=== PATIENT | female | born 2000 | race Caucasian/White ===

== ENCOUNTER → 2022-01-24 | Outpatient (CLI) | payer SELFPAY ==
[2022-01-24 12:03] LABS: Basophils # (A) 0.06 X 10*3/uL (0.00-0.10); Basophils % (A) 0.9 %; Eosinophils # (A) 0.31 X 10*3/uL (0.04-0.35); Eosinophils % (A) 4.8 %; HCT 39.9 % (37.2-46.3); HGB 12.8 g/dL (12.0-15.0); Immature Grans, Automated 0.3 %; Lymphocytes # (A) 2.41 X 10*3/uL (0.90-5.00); Lymphocytes % (A) 37.5 %; MCHC 32.1 g/dL (32.0-37.0); MCV 87.3 fL (80.0-97.0); Mean Platelet Volume 10.3 fL (9.5-12.2); Monocytes # (A) 0.44 X 10*3/uL (0.20-1.00); Monocytes % (A) 6.8 %; NRBC Per 100 WBC 0 /100 WBCS (0.0-0.0); Neutrophils # (A) 3.19 X 10*3/uL (1.80-7.70); Neutrophils % (A) 49.7 %; Platelet Count 409 X 10*3/uL (140-440); RBC 4.57 X 10*6/uL (4.10-5.20); RDW 13.6 % (11.5-14.5); WBC 6.43 X 10*3/uL (4.50-10.00)
[2022-01-24 12:42] LABS: African American GFR (CKD) 120.4 (60.0-200.0); BUN/Creat Ratio 13.63 Ratio (12.00-20.00); Blood Urea Nitrogen 10.9 mg/dL (9.0-27.0); Calcium 9.6 mg/dL (8.7-10.3); Carbon Dioxide 23.6 mmol/L (20.0-27.5); Chloride 104 mmol/L (96-109); Glucose 96 mg/dL (70-110); Non-African American GFR(CKD) 103.9 (60.0-200.0); Potassium 3.9 mmol/L (3.5-5.5); Sodium 138 mmol/L (135-145)
== END | disposition home or self-care (01) ==
LOC: LABWHC1 08:08
PROVIDERS: ATTEND Internal Medicine
DX: E23.0 Hypopituitarism (principal)
CPT/HCPCS: 36415; 80048; 82533; 84443; 85025

== ENCOUNTER 2022-05-23 20:23 | Emergency (ER) | payer OTHER ==
[2022-05-23 21:20] VITALS: BP 96/63; PULSE 71; RESP 18; TEMP 98.4
--- NOTE | 2022-05-23 21:43 | XR ---
EXAMINATION TYPE: XR Hip Complete RT DATE OF EXAM: 05/23/2022 COMPARISON: NONE HISTORY: Hip pain TECHNIQUE: 2 views FINDINGS: I see no fracture nor dislocation. Hip joint space is normal. Sacroiliac joint is intact. IMPRESSION: Negative right hip exam. No fracture.
--- NOTE | 2022-05-23 21:44 | XR ---
EXAMINATION TYPE: XR knee complete RT DATE OF EXAM: 05/23/2022 COMPARISON: NONE HISTORY: Knee pain TECHNIQUE: 5 views FINDINGS: There is no sign of fracture nor dislocation. Knee joint spaces are normal. No sign of joint effusion. IMPRESSION: Normal right knee.
--- NOTE | 2022-05-24 01:06 | ED ---
Extremity Problem HPI - General Chief complaint: Extremity Problem,Nontraumatic Stated complaint: Right Knee Injury Time Seen by Provider: 05/24/22 00:49 Source: patient, RN notes reviewed Mode of arrival: ambulatory Limitations: no limitations - History of Present Illness Initial comments: Patient was in our department with right knee pain. Patient states she had a popping sensation about a week ago, she states this happened about 3 times and she has a feeling of instability when she is walking. Patient states pain is sharp, increased with ambulation and movement of the knee. It radiates from the knee proximally. No hip or ankle abdomen body. There was no direct trauma. No headache, no fever or chills, no changes in vision or hearing, no sore throat or difficulty with speech, no neck pain, no chest pain or shortness of breath, no abdominal pain, no nausea or vomiting, no changes in urination or bowel movements, no numbness or tingling, , no skin rashes or lesions. MD Complaint: extremity pain - Related Data Previous Rx's Medication Instructions Recorded Etodolac [Lodine] 400 mg PO BID PRN #20 tablet 05/24/22 Allergies Allergy/AdvReac Type Severity Reaction Status Date / Time clindamycin Allergy Rash/Hives Verified 05/23/22 21:20 Review of Systems ROS Statement: Those systems with pertinent positive or pertinent negative responses have been documented in the HPI. ROS Other: All systems not noted in ROS Statement are negative. Past Medical History Past Medical History: No Reported History History of Any Multi-Drug Resistant Organisms: None Reported Past Surgical History: No Surgical Hx Reported Past Psychological History: Anxiety, Depression Smoking Status: Never smoker Past Alcohol Use History: None Reported Past Drug Use History: None Reported General Exam Limitations: no limitations General appearance: alert, in no apparent distress Head exam: Present: atraumatic, normocephalic, normal inspection Eye exam: Present: normal appearance, PERRL, EOMI. Absent: scleral icterus, conjunctival injection, periorbital swelling ENT exam: Present: normal exam, mucous membranes moist Neck exam: Present: normal inspection, full ROM. Absent: tenderness, meningismus, lymphadenopathy Respiratory exam: Present: normal lung sounds bilaterally. Absent: respiratory distress, wheezes, rales, rhonchi, stridor Cardiovascular Exam: Present: regular rate, normal rhythm, normal heart sounds. Absent: systolic murmur, diastolic murmur, rubs, gallop, clicks GI/Abdominal exam: Present: soft, normal bowel sounds. Absent: distended, tenderness, guarding, rebound, rigid Extremities exam: Present: normal inspection, full ROM (With pain), tenderness (Patient tender to the anterior aspect of the right knee. No erythema, no break in skin integrity. Ligaments stable as tested.), normal capillary refill. Absent: pedal edema, joint swelling, calf tenderness Back exam: Present: normal inspection Neurological exam: Present: alert, oriented X3, CN II-XII intact Psychiatric exam: Present: normal affect, normal mood Skin exam: Present: warm, dry, intact, normal color. Absent: rash Course Vital Signs 05/23/22 21:17 Temperature 98.4 F Pulse Rate 71 Respiratory 18 Rate Blood Pressure 96/63 O2 Sat by Pulse 100 Oximetry Procedures - Orthopedic Splinting/Casting Injury #1 Side: right Lower Extremity Immobilizer: knee immobilizer (Distal neurovascular status intact pre-and post-application) Medical Decision Making - Medical Decision Making Patient will need orthopedic follow-up. Knee immobilizer applied. Work restrictions written. Patient was told to return to the ER for any signs or symptoms worsen. Told to return immediately if any other problems arise. All questions answered. Treatment plan discussed. Patient in agreement Every effort has been made to ensure accuracy of this dictation. However, due to the limitations of electronic medical records and dictation devices, errors in charting still occur. Resident Dr. Piña Disposition Clinical Impression: Patellar tendinitis, right knee Disposition: HOME SELF-CARE Condition: Good Instructions (If sedation given, give patient instructions): Knee Pain (ED), Knee Immobilizer (ED) Additional Instructions: Call tomorrow morning to make a follow-up appointment with orthopedics as discussed.. Return to the ER immediately if any symptoms worsen, new symptoms arise, or any other problems develop. Is patient prescribed a controlled substance at d/c from ED?: No Referrals: Gianni Arzate MD [STAFF PHYSICIAN] - 1-2 days Time of Disposition: 01:05
== END 2022-05-24 01:26 | disposition home or self-care (01) ==
LOC: EC 20:23
DX: M76.51 Patellar tendinitis, right knee (principal)
CPT/HCPCS: 73502; 99283

== ENCOUNTER 2022-09-20 11:23 | Emergency (ER) | payer OTHER ==
[2022-09-20 11:36] VITALS: RESP 18; TEMP 97.5
[2022-09-20] MEDS ORDERED: ACETAMINOPHEN TAB 500 MG TAB PO STA (11:52)
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
[2022-09-20 13:23] VITALS: BP 105/71; PULSE 80
== END 2022-09-20 13:23 | disposition home or self-care (01) ==
LOC: EC 11:23
DX: M79.18 Myalgia, other site (principal); Z88.1 Allergy status to other antibiotic agents; V89.2XXA Person injured in unspecified motor-vehicle accident, traffic, initial encounter
CPT/HCPCS: 99284

== ENCOUNTER 2022-11-26 14:30 | Emergency (ER) | payer OTHER ==
[2022-11-26 14:35] VITALS: TEMP 97.6
[2022-11-26] MEDS ORDERED: METOCLOPRAMIDE 5 MG/ML 2 ML VIAL IVP STA (14:43)
[2022-11-26] MEDS ORDERED: MAG HYDROX/AL HYDROX/SIMETH 30 ML, HYOSCYAMINE ELIXIR 10 ML, LIDOCAINE VISCOUS 2% 10 ML PO STA ×3 (14:46)
[2022-11-26] MEDS ORDERED: ACETAMINOPHEN TAB 500 MG TAB PO STA (14:46)
--- NOTE | 2022-11-26 14:58 | ED ---
General Adult HPI - General Chief complaint: Chest Pain Stated complaint: 28wks preg, chest pressure Time Seen by Provider: 11/26/22 14:37 Source: patient, RN notes reviewed, old records reviewed Mode of arrival: ambulatory Limitations: no limitations - History of Present Illness Initial comments: Patient is a 22-year-old female who presents emergency Department complaining of a 4-5 day history of worsening chest discomfort. Describes as a pressure s ensation is also had some nausea and vomiting. Pain is worse with movement. Eyes gary shortness of breath. Denies fevers, chills, cough. Unknown family medical history of cardiac disease as she was adopted. No known cardiac medical problems for the patient. Denies any leg swelling. Denies any orthopnea. Denies any PND. Presents that she is uncertain was causing the pain. States is more or less constant. Denies any worsening pain with laying down. She is resting comfortably at this time. Patient is G5 P 2021. No competitions with this current . Denies any vaginal bleeding or spotting. Denies any abdominal pain. Does endorse mild nausea. Presents for further evaluation at this time. Follows up with Dr. Fairchild. She is currently 28 weeks .States the pain is located in the upper area, near where her sternum meets her collarbones. No radiation. No pleurisy. - Related Data Previous Rx's Medication Instructions Recorded Etodolac [Lodine] 400 mg PO BID PRN #20 tablet 05/24/22 Allergies Allergy/AdvReac Type Severity Reaction Status Date / Time clindamycin Allergy Rash/Hives Verified 05/23/22 21:20 Review of Systems ROS Statement: Those systems with pertinent positive or pertinent negative responses have been documented in the HPI. Review of Systems: CONST: Denies fever EYES: Denies blurry vision ENT: Denies nasal congestion C/V: Endorses chest pain RESP: Denies shortness of breath GI: Denies abdominal pain : Denies dysuria SKIN: Denies rash. MSK: Denies joint pain. NEURO: Denies headache ROS Other: All systems not noted in ROS Statement are negative. Past Medical History Past Medical History: No Reported History History of Any Multi-Drug Resistant Organisms: None Reported Past Surgical History: No Surgical Hx Reported Additional Past Surgical History / Comment(s): D & C after miscarriage in October 2021. Past Psychological History: Anxiety, Depression Smoking Status: Never smoker Past Alcohol Use History: None Reported Past Drug Use History: None Reported General Exam - General Exam Comments Initial Comments: General: Appears in no acute distress. HEAD: Normal with no signs of head trauma. EYES: PERRLA, EOMI, conjunctiva normal, no discharge. ENT: Hearing grossly intact, normal oropharynx. RESPIRATORY: Clear breath sounds bilaterally. No wheezes, rales, or rhonchi. No hypoxia. No respiratory distress. C/V: Regular rate and rhythm. S1 and S2 auscultated, no edema, peripheral pulses 2+ and intact throughout. Chest pain is somewhat reproducible on pal pation. ABD: Gravid uterus. Abdomen is soft, nontender. No guarding. No peritoneal signs. EXT: Normal range of motion, no obvious deformity SKIN: No rashes or lesions observed on exposed skin. NEURO: Alert and oriented 4. Limitations: no limitations Course Vital Signs 11/26/22 11/26/22 11/26/22 14:31 16:22 18:59 Temperature 97.6 F Pulse Rate 94 100 98 Respiratory 18 12 18 Rate Blood Pressure 99/63 100/60 100/60 O2 Sat by Pulse 98 98 99 Oximetry Medical Decision Making - Medical Decision Making Was pt. sent in by a medical professional or institution? @ -Yes, patient's DRAFTING ENGINEER sent her in for evaluation to be evaluated for preeclampsia. Did you speak to anyone other than the patient for history? @ -No Did you review nursing and triage notes? @ -Yes. I agreed. Were old charts reviewed? @ -Prior admissions Differential Diagnosis? @ -Differential Chest Pain: Stable Angina, Unstable Angina, STEMI, NSTEMI Aortic Dissection, Pneumothorax, Musculoskeletal, Esophageal Spasm GERD, Cholecystitis, Pancreatitis, Zoster, this is not meant to be an all-inclusive list. Differential Dyspnea: Coronary syndrome, arrhythmia, tamponade, asthma, COPD, pulmonary embolism, pneumonia, pneumothorax, pulmonary effusion, anaphylaxis, diabetic ketoacidosis, flailed chest, pulmonary contusion, diaphragmatic rupture, anemia, neuromus cular, this is not meant to be an all-inclusive list. EKG interpreted by me (3pts min.)? @ -Yes. See note. X-rays interpreted by me (1pt min.)? @ -Yes. Chest x-ray revealed no acute cardio pulmonary process. CT interpreted by me (1pt min.)? @ -none U/S interpreted by me (1pt. min.)? @ -Yes. Bilateral lower extremity venous duplex ultrasounds were negative for DVT. What testing was considered but not performed? (CT, X-rays, U/S, labs)? Why? @None What meds were considered but not given? Why? @ -none Did you discuss the management of the patient with other professionals? @ -None Did you reconcile home meds? @ -none Was smoking cessation discussed for >3mins.? @ -none Was critical care preformed (if so, how long)? @ -none Were there social determinants of health that impacted care today? How? (Homelessness, low income, unemployed, alcoholism, drug addiction, transportation, low edu. Level, literacy, decrease access to med. care, [facility], rehab)? @ -No Was there de-escalation of care discussed even if they declined? (Discuss DNR or withdrawal of care, Hospice)? @ -No What co-morbidities impacted this encounter? (DM, HTN, Smoking, COPD, CAD, Cancer, CVA, Hep., AIDS, mental health diagnosis, sleep apnea, morbid obesity)? @ -Currently in third trimester . Was patient admitted / discharged? @ - Based on the patient's presentation and physical exam, I'm concerned for cardiopulmonary etiology for her current chest pain. I have lower suspicion, however we will obtain cardiac labs. We will also obtain EKG, one view chest x- ray after discussion with the patient to avoid any excess radiation she is currently 28 weeks . She was in agreement with this plan. She'll receive analgesia medications. These include a GI cocktail, Tylenol, antibiotics as well as a liter of D5 normal saline. Patient was in agreement this plan. Vital signs are within acceptable limits. She is in no respiratory distress. We will obtain heart tones by DRAFTING ENGINEER. heart tones were obtained and were within acceptable limits in the 150s. Patient's laboratory studies are remarkable for a microcytic anemia with a hemoglobin of 10. Troponin is undetectable. BNP is within normal limits. Urinalysis is a contaminated catch. Chest x-ray as interpreted by myself reveals no evidence of acute cardiac process. EKG shows no signs of acute ische jody. At this time, patient had just had fluids hung. Was still having some symptoms. She'll be given Benadryl in addition to the Reglan for her headache as well as a GI cocktail. I did recommend obtaining a screening d-dimer at this time as well as she is still having the chest heaviness symptoms or shortness of breath. She was in agreement this plan. Patient's d-dimer was elevated to 0.91, however within acceptable limits to rule out PE in the patient in third trimester of based on the YEARS algorhythm. She has no YEARS criteria and ddimer is <1. However we will obtain screening bilateral lower extremity venous duplexes. These returned negative for DVT. Patient has normal blood pressure and vital signs as well as laboratory studies do not support a diagnosis of preeclampsia. Have no concern for preeclampsia at this time. I updated the patient. At this time, patient's symptoms have completely resolved. She is feeling improved. I believe it is safer to be discharged home at this time. She was in agreement with this plan. Strict return precautions were discussed. Heart scores low at 1. She was in agreement with this plan. Patient has follow-up with DRAFTING ENGINEER this week. I instructed the patient to follow up with their PCP in the next 1-3 days. I explained that the patient should return to the emergency department if they experience any worsening symptoms. Strict return precautions were discussed with the patient. The patient expressed understanding of these instructions. I answered all questions that the patient had. The patient was discharged home in good condition with their prescriptions and follow up information. Undiagnosed new problem with uncertain prognosis? @ -Atypical chest pain Drug Therapy requiring intensive monitoring for toxicity (Heparin, Nitro, Insulin, Cardizem)? @ -none Were any procedures done? @ -none Diagnosis/symptom? @ -Atypical chest pain, headache Acute, or Chronic, or Acute on Chronic? @ -acute Uncomplicated (without systemic symptoms) or Complicated (systemic symptoms)? @ -Uncomplicated Side effects of treatment? @ -none Exacerbation, Progression, or Severe Exacerbation] @ -no Poses a threat to life or bodily function? @ -no - Lab Data Result diagrams: 11/26/22 14:55 11/26/22 14:55 Lab Results 11/26/22 11/26/22 11/26/22 Range/Units 14:55 14:55 14:55 WBC 8.4 (3.8-10.6) k/uL RBC 3.91 (3.80-5.40) m/uL Hgb 10.0 L (11.4-16.0) gm/dL Hct 30.0 L (34.0-46.0) % MCV 76.7 L (80.0-100.0) fL MCH 25.5 (25.0-35.0) pg MCHC 33.3 (31.0-37.0) g/dL RDW 14.3 (11.5-15.5) % Plt Count 264 (150-450) k/uL MPV 9.3 Neutrophils % 74 % Lymphocytes % 16 % Monocytes % 5 % Eosinophils % 2 % Basophils % 0 % Neutrophils # 6.2 (1.3-7.7) k/uL Lymphocytes # 1.4 (1.0-4.8) k/uL Monocytes # 0.4 (0-1.0) k/uL Eosinophils # 0.2 (0-0.7) k/uL Basophils # 0.0 (0-0.2) k/uL Hypochromasia Slight Poikilocytosis Slight PT (9.0-12.0) sec INR (<1.2) APTT (22.0-30.0) sec D-Dimer (<0.60) mg/L FEU Sodium 135 L (137-145) mmol/L Potassium 4.0 (3.5-5.1) mmol/L Chloride 109 H (98-107) mmol/L Carbon Dioxide 22 (22-30) mmol/L Anion Gap 4 mmol/L BUN 5 L (7-17) mg/dL Creatinine 0.51 L (0.52-1.04) mg/dL Est GFR (CKD-EPI)AfAm >90 (>60 ml/min/1.73 sqM) Est GFR (CKD-EPI)NonAf >90 (>60 ml/min/1.73 sqM) Glucose 91 (74-99) mg/dL Calcium 8.4 (8.4-10.2) mg/dL Magnesium 2.0 (1.6-2.3) mg/dL Total Bilirubin 0.7 (0.2-1.3) mg/dL AST 18 (14-36) U/L ALT 12 (4-34) U/L Alkaline Phosphatase 89 (38-126) U/L Troponin I <0.012 (0.000-0.034) ng/mL NT-Pro-B Natriuret Pep pg/mL Total Protein 6.1 L (6.3-8.2) g/dL Albumin 3.2 L (3.5-5.0) g/dL Amylase 51 (30-110) U/L Lipase 26 (23-300) U/L Urine Color Urine Appearance (Clear) Urine pH (5.0-8.0) Ur Specific [place] (1.001-1.035) Urine Protein (Negative) Urine Glucose (UA) (Negative) Urine Ketones (Negative) Urine Blood (Negative) Urine Nitrite (Negative) Urine Bilirubin (Negative) Urine Urobilinogen (<2.0) mg/dL Ur Leukocyte Esterase (Negative) Urine RBC (0-5) /hpf Urine WBC (0-5) /hpf Ur Squamous Epith Cells (0-4) /hpf Urine Bacteria (None) /hpf Urine Mucus (None) /hpf 11/26/22 11/26/22 11/26/22 Range/Units 14:55 15:05 15:05 WBC (3.8-10.6) k/uL RBC (3.80-5.40) m/uL Hgb (11.4-16.0) gm/dL Hct (34.0-46.0) % MCV (80.0-100.0) fL MCH (25.0-35.0) pg MCHC (31.0-37.0) g/dL RDW (11.5-15.5) % Plt Count (150-450) k/uL MPV Neutrophils % % Lymphocytes % % Monocytes % % Eosinophils % % Basophils % % Neutrophils # (1.3-7.7) k/uL Lymphocytes # (1.0-4.8) k/uL Monocytes # (0-1.0) k/uL Eosinophils # (0-0.7) k/uL Basophils # (0-0.2) k/uL Hypochromasia Poikilocytosis PT 9.6 (9.0-12.0) sec INR 0.9 (<1.2) APTT 24.7 (22.0-30.0) sec D-Dimer 0.91 H (<0.60) mg/L FEU Sodium (137-145) mmol/L Potassium (3.5-5.1) mmol/L Chloride (98-107) mmol/L Carbon Dioxide (22-30) mmol/L Anion Gap mmol/L BUN (7-17) mg/dL Creatinine (0.52-1.04) mg/dL Est GFR (CKD-EPI)AfAm (>60 ml/min/1.73 sqM) Est GFR (CKD-EPI)NonAf (>60 ml/min/1.73 sqM) Glucose (74-99) mg/dL Calcium (8.4-10.2) mg/dL Magnesium (1.6-2.3) mg/dL Total Bilirubin (0.2-1.3) mg/dL AST (14-36) U/L ALT (4-34) U/L Alkaline Phosphatase (38-126) U/L Troponin I (0.000-0.034) ng/mL NT-Pro-B Natriuret Pep 20 pg/mL Total Protein (6.3-8.2) g/dL Albumin (3.5-5.0) g/dL Amylase (30-110) U/L Lipase (23-300) U/L Urine Color Urine Appearance (Clear) Urine pH (5.0-8.0) Ur Specific [place] (1.001-1.035) Urine Protein (Negative) Urine Glucose (UA) (Negative) Urine Ketones (Negative) Urine Blood (Negative) Urine Nitrite (Negative) Urine Bilirubin (Negative) Urine Urobilinogen (<2.0) mg/dL Ur Leukocyte Esterase (Negative) Urine RBC (0-5) /hpf Urine WBC (0-5) /hpf Ur Squamous Epith Cells (0-4) /hpf Urine Bacteria (None) /hpf Urine Mucus (None) /hpf 11/26/22 Range/Units 16:20 WBC (3.8-10.6) k/uL RBC (3.80-5.40) m/uL Hgb (11.4-16.0) gm/dL Hct (34.0-46.0) % MCV (80.0-100.0) fL MCH (25.0-35.0) pg MCHC (31.0-37.0) g/dL RDW (11.5-15.5) % Plt Count (150-450) k/uL MPV Neutrophils % % Lymphocytes % % Monocytes % % Eosinophils % % Basophils % % Neutrophils # (1.3-7.7) k/uL Lymphocytes # (1.0-4.8) k/uL Monocytes # (0-1.0) k/uL Eosinophils # (0-0.7) k/uL Basophils # (0-0.2) k/uL Hypochromasia Poikilocytosis PT (9.0-12.0) sec INR (<1.2) APTT (22.0-30.0) sec D-Dimer (<0.60) mg/L FEU Sodium (137-145) mmol/L Potassium (3.5-5.1) mmol/L Chloride (98-107) mmol/L Carbon Dioxide (22-30) mmol/L Anion Gap mmol/L BUN (7-17) mg/dL Creatinine (0.52-1.04) mg/dL Est GFR (CKD-EPI)AfAm (>60 ml/min/1.73 sqM) Est GFR (CKD-EPI)NonAf (>60 ml/min/1.73 sqM) Glucose (74-99) mg/dL Calcium (8.4-10.2) mg/dL Magnesium (1.6-2.3) mg/dL Total Bilirubin (0.2-1.3) mg/dL AST (14-36) U/L ALT (4-34) U/L Alkaline Phosphatase (38-126) U/L Troponin I (0.000-0.034) ng/mL NT-Pro-B Natriuret Pep pg/mL Total Protein (6.3-8.2) g/dL Albumin (3.5-5.0) g/dL Amylase (30-110) U/L Lipase (23-300) U/L Urine Color Yellow Urine Appearance Cloudy H (Clear) Urine pH 7.0 (5.0-8.0) Ur Specific [place] 1.014 (1.001-1.035) Urine Protein Trace H (Negative) Urine Glucose (UA) Negative (Negative) Urine Ketones Negative (Negative) Urine Blood Negative (Negative) Urine Nitrite Negative (Negative) Urine Bilirubin Negative (Negative) Urine Urobilinogen <2.0 (<2.0) mg/dL Ur Leukocyte Esterase Large H (Negative) Urine RBC 7 H (0-5) /hpf Urine WBC 3 (0-5) /hpf Ur Squamous Epith Cells 33 H (0-4) /hpf Urine Bacteria Occasional H (None) /hpf Urine Mucus Moderate H (None) /hpf - EKG Data -: EKG Interpreted by Me EKG Comments: 12-lead Electrocardiogram Interpretation Note EKG was reviewed and interpreted by myself. 12-lead ECG performed at 1451 is interpreted by me as revealing since tachycardia at a rate of 101 beats per minute. [place] is normal. GA interval is 133 ms, QRS duration 74 ms, QTc is 386 ms.. There were no ST or T wave abnormalities to suggest myocardial ischemia or injury. R wave progression across the precordium was satisfactory. By my interpretation this EKG is non-diagnostic for acute ischemia. No prior EKG for comparison. Disposition Clinical Impression: Atypical chest pain, Acute headache Disposition: HOME SELF-CARE Condition: Good Instructions (If sedation given, give patient instructions): Chest Pain (ED) Is patient prescribed a controlled substance at d/c from ED?: No Referrals: Nonstaff,Physician [Primary Care Provider] - 1-2 days Time of Disposition: 18:50
[2022-11-26] MEDS ORDERED: DEXTROSE 5%-0.9% NACL 1,000 ML IV SCH (15:00)
[2022-11-26 15:10] LABS: Basophils % (A) 0 %; Eosinophils # (A) 0.2 k/uL (0-0.7); Eosinophils % (A) 2 %; Hypochromasia Slight; Lymphocytes # (A) 1.4 k/uL (1.0-4.8); Lymphocytes % (A) 16 %; MCH 25.5 pg (25.0-35.0); MCHC 33.3 g/dL (31.0-37.0); MCV 76.7 fL (80.0-100.0); Mean Platelet Volume 9.3; Monocytes # (A) 0.4 k/uL (0-1.0); Monocytes % (A) 5 %; Neutrophils # (A) 6.2 k/uL (1.3-7.7); Neutrophils % (A) 74 %; Platelet Count 264 k/uL (150-450); Poikilocytosis Slight; RBC 3.91 m/uL (3.80-5.40); RDW 14.3 % (11.5-15.5); WBC 8.4 k/uL (3.8-10.6)
[2022-11-26 15:22] LABS: INR 0.9 (<1.2); Partial Thromboplastin Time 24.7 sec (22.0-30.0); Prothrombin Time 9.6 sec (9.0-12.0)
[2022-11-26 15:25] LABS: ALT 12 U/L (4-34); AST 18 U/L (14-36); African American GFR (CKD) >90 (>60 ml/min/1.73 sqM); Albumin 3.2 g/dL (3.5-5.0); Alkaline Phosphatase 89 U/L (38-126); Amylase 51 U/L (30-110); Anion Gap 4 mmol/L; Blood Urea Nitrogen 5 mg/dL (7-17); Calcium 8.4 mg/dL (8.4-10.2); Carbon Dioxide 22 mmol/L (22-30); Chloride 109 mmol/L (98-107); Glucose 91 mg/dL (74-99); Lipase 26 U/L (23-300); Non-African American GFR(CKD) >90 (>60 ml/min/1.73 sqM); Sodium 135 mmol/L (137-145); Total Bilirubin 0.7 mg/dL (0.2-1.3); Total Protein 6.1 g/dL (6.3-8.2)
--- NOTE | 2022-11-26 15:28 | XR ---
EXAMINATION TYPE: XR chest 1V portable DATE OF EXAM: 11/26/2022 COMPARISON: 10/02/2017 HISTORY: Chest pain TECHNIQUE: FINDINGS: Heart and mediastinum are normal. Lungs are clear. Diaphragm is normal. There is thoracic d extroscoliosis. No pleural effusion. IMPRESSION: No active cardiopulmonary disease. Normal heart. No change.
[2022-11-26] MEDS ORDERED: diphenhydrAMINE 50 MG/ML 1 ML VIAL IVP STA (16:22)
[2022-11-26 16:23] VITALS: BP 100/60
[2022-11-26 17:13] LABS: Appearance,Urine Cloudy (Clear); Bacteria,Urine Occasional /hpf; Bilirubin,Urine Negative (Negative); Blood,Urine Negative (Negative); Color,Urine Yellow; Glucose,Urine (UA) Negative (Negative); Ketones,Urine Negative (Negative); Leukocyte Esterase,Urine Large (Negative); Mucus,Urine Moderate /hpf; Nitrite,Urine Negative (Negative); Protein,Urine Trace (Negative); RBC,Urine 7 /hpf (0-5); Specific Gravity,Urine 1.014 (1.001-1.035); Squamous Epithelial Cell,Urine 33 /hpf (0-4); Urobilinogen,Urine <2.0 mg/dL (<2.0); WBC,Urine 3 /hpf (0-5)
--- NOTE | 2022-11-26 18:33 | US ---
EXAMINATION TYPE: US venous doppler duplex LE BI DATE OF EXAM: 11/26/2022 6:23 PM COMPARISON: NONE CLINICAL HISTORY: eval for dvt. SIDE PERFORMED: TECHNIQUE: The lower extremity deep venous system is examined utilizing real time linear array sonog maicol with graded compression, doppler sonography and color-flow sonography. VESSELS IMAGED: Common Femoral Vein Deep Femoral Vein Greater Saphenous Vein * Femoral Vein Popliteal Vein Small Saphenous Vein * Proximal Calf Veins (* superficial vessels) Right Leg: Left Leg: IMPRESSION: No evidence of deep vein thrombosis in both legs.
[2022-11-26 19:00] VITALS: PULSE 98; RESP 18
== END 2022-11-26 19:02 | disposition home or self-care (01) ==
LOC: EC 14:30
DX: O26.893 Other specified pregnancy related conditions, third trimester (principal); O99.891 Other specified diseases and conditions complicating pregnancy; O99.343 Other mental disorders complicating pregnancy, third trimester; O99.713 Diseases of the skin and subcutaneous tissue complicating pregnancy, third trimester; R07.89 Other chest pain; R51.9 Headache, unspecified; F41.9 Anxiety disorder, unspecified; F32.A Depression, unspecified; Z88.1 Allergy status to other antibiotic agents; Z3A.28 28 weeks gestation of pregnancy
CPT/HCPCS: 36415; 93005; 85379; 83880; 80053; 82150; 83690; 83735; 84484; 85025; 85610; 85730; 81001; 71045; 93970; 99285; 96374; 96375; 96361; J1200; J2765

== ENCOUNTER 2022-12-12 12:32 | Outpatient (CLI) | payer OTHER ==
[2022-12-12 13:40] VITALS: BP 107/61; PULSE 107; RESP 16; TEMP 98.4
--- NOTE | 2022-12-18 07:51 | P.MSEPDOC ---
Presenting Problems - Arrival Data Date of Arrival on Unit: 12/12/22 Time of Arrival on Unit: 12:32 Mode of Transport: Ambulatory - Complaint OB-Reason for Admission/Chief Complaint: Decreased Movement Comment: Pt states no movement since last night Medical History - Information : 5 Para: 2 - Gestational Age Gestational Age by DIANDRA (wks/days): 31 Weeks and 0 Days Review of Systems - Review of Systems Constitutional: No problems Breast: No problems ENT: No problems Cardiovascular: No problems Respiratory: No problems Gastrointestinal: No problems Genitourinary: No problems Musculoskeletal: No problems Neurological: No problems Skin: No problems Vital Signs - Temperature Temperature: 98.4 F Temperature Source: Temporal Artery Scan - Pulse Right Sitting Brachial Pulse Rate: 107 Pulse Assessment Method: Automatic Cuff - Respirations Respiratory Rate: 16 Oxygen Delivery Method: Room Air O2 Sat by Pulse Oximetry: 97 - Blood Pressure Right Arm Sitting Blood Pressure: 107/61 Blood Pressure Mean: 76 Blood Pressure Source: Automatic Cuff Medical Screen Scoring - Assessment - Baby A Baseline FHR: 125 Heart Rate - NICHD Category: Category I (Normal) NST: Reactive Physician Notification - Physician Notified Physician Notified Date: 12/12/22 Physician Notified Time: 13:15 Physician: Harpal Larose - Notification Comment Comment: Spk c\Dr. Larose, advia pt of Dr. Mott, arrives to triage c/o no movement since last night. Reactive NST. Pt now reporting movement. Has appt 12/19 Maternal Triage Index - Maternal Triage Index Presenting for scheduled procedure w/no complaint: No - Stat/Priority 1 Stat Priority 1: Yes Provider Notified: Harpal Larose Provider Notified Time: 13:15 Criteria Met for Priority 1: No movement Disposition - Disposition OB Disposition: Discharge to home, Written follow up instructions reviewed Discharge Date: 12/12/22 Discharge Time: 13:20 I agree with the RN Medical Screening Exam: Yes Case reviewed; plan agreed upon as documented in EMR&OBIX.: Yes Diagnosis: DECREASED MOVEMENTS, THIRD TRIMESTER, UNSP (NST is Cat 1. Patient now reports movement. No evidence of maternal or compromise. )
== END 2022-12-12 13:20 | disposition home or self-care (01) ==
LOC: FBPOP 12:32
PROVIDERS: ATTEND Obstetrics & Gynecology
DX: O36.8130 Decreased fetal movements, third trimester, not applicable or unspecified (principal); Z3A.31 31 weeks gestation of pregnancy; Z88.1 Allergy status to other antibiotic agents; F17.200 Nicotine dependence, unspecified, uncomplicated
CPT/HCPCS: 59025; G0463; 99213

== ENCOUNTER 2023-01-10 13:08 | Outpatient (CLI) | payer OTHER ==
[2023-01-10 14:47] VITALS: BP 110/66; PULSE 113; RESP 16; TEMP 98.6
--- NOTE | 2023-01-24 07:55 | P.MSEPDOC ---
Presenting Problems - Arrival Data Date of Arrival on Unit: 01/10/23 Time of Arrival on Unit: 13:08 Mode of Transport: Ambulatory - Complaint OB-Reason for Admission/Chief Complaint: Vaginal Bleeding, Pain Medical History - Information : 5 Para: 2 Number of Living Children: 2 - Gestational Age Gestational Age by DIANDRA (wks/days): 35 Weeks and 1 Days Review of Systems - Review of Systems Constitutional: No problems Breast: No problems ENT: No problems Cardiovascular: No problems Respiratory: No problems Gastrointestinal: No problems Genitourinary: No problems Musculoskeletal: No problems Neurological: No problems Skin: No problems Vital Signs - Temperature Temperature: 98.6 F Temperature Source: Temporal Artery Scan - Pulse Right Sitting Brachial Pulse Rate: 113 Pulse Assessment Method: Auscultation - Respirations Respiratory Rate: 16 Oxygen Delivery Method: Room Air O2 Sat by Pulse Oximetry: 99 - Blood Pressure Right Arm Sitting Blood Pressure: 110/66 Blood Pressure Mean: 80 Blood Pressure Source: Automatic Cuff Medical Screen Scoring - Assessment - Baby A Baseline FHR: 135 Heart Rate - NICHD Category: Category I (Normal) NST: Reactive Physician Notification - Physician Notified Physician Notified Date: 01/10/23 Physician Notified Time: 14:28 Physician: Sofiya Jacobs Order Received: Yes Maternal Triage Index - Maternal Triage Index Presenting for scheduled procedure w/no complaint: No - Stat/Priority 1 Stat Priority 1: No - Urgent/Priority 2 Urgent Priority 2: No - Prompt/Priority 3 Prompt Priority 3: Yes Criteria Met for Priority 3: c/o leaking fluid Disposition - Disposition OB Disposition: Discharge to home Discharge Date: 01/10/23 Discharge Time: 14:33 I agree with the RN Medical Screening Exam: Yes Case reviewed; plan agreed upon as documented in EMR&OBIX.: Yes Diagnosis: FALSE LABOR BEFORE 37 COMPLETED WEEKS OF GEST, THIRD TRI
== END 2023-01-10 14:33 | disposition home or self-care (01) ==
LOC: FBPOP 13:08
PROVIDERS: ATTEND Obstetrics & Gynecology
DX: O47.03 False labor before 37 completed weeks of gestation, third trimester (principal); Z3A.35 35 weeks gestation of pregnancy; O99.333 Smoking (tobacco) complicating pregnancy, third trimester; Z88.1 Allergy status to other antibiotic agents; F17.200 Nicotine dependence, unspecified, uncomplicated
CPT/HCPCS: 59025; 84112; G0463; 99213

== ENCOUNTER → 2023-08-10 | Outpatient (CLI) | payer OTHER ==
--- NOTE | 2023-08-10 18:58 | US ---
EXAMINATION TYPE: US pelvis complete transvag DATE OF EXAM: 08/10/2023 COMPARISON: NONE CLINICAL INDICATION: Female, 23 years old with history of R10.2 PELVIC AND PERINEAL PAIN; Pain. Hx of 2 miscarriages. Hx C section. . TECHNIQUE: Transvaginal (TV) and Transabdominal (TA) . Transabdominal sonographic images of the pel vis were acquired. Transvaginal sonographic images were medically necessary to better assess the fol lowing anatomy: left ovary Date of LMP: Unknown per patient. EXAM MEASUREMENTS: Uterus: 8.3 x 6.5 x 4.6 cm Endometrial Stripe: 0.78 cm Right Ovary: 4.7 x 2.7 x 2.8 cm Left Ovary: 4.4 x 2.4 x 2.5 cm 1. Uterus: Anteverted Heterogeneous. 2. Endometrium: 0.78 cm 3. Right Ovary: Complex area seen: 2.3 x 1.6 x 1.4 cm. 4. Left Ovary: Follicles seen. 5. Bilateral Adnexa: Appear wnl 6. Posterior cul-de-sac: Fluid seen within the CDS= 3.4 x 3.3 x 1.7 cm. IMPRESSION: 1. Heterogenous uterine myometrium may reflect underlying leiomyomatous change. 2. free fluid within the cul-de-sac.
== END | disposition home or self-care (01) ==
LOC: RADUSWWP 14:18
PROVIDERS: ATTEND Obstetrics & Gynecology
DX: N85.8 Other specified noninflammatory disorders of uterus (principal); R10.2 Pelvic and perineal pain
CPT/HCPCS: 76830; 76856

== ENCOUNTER 2023-08-16 15:56 | Emergency (ER) | payer OTHER ==
[2023-08-16 17:25] VITALS: RESP 18; TEMP 98
--- NOTE | 2023-08-16 17:46 | ED ---
Abdominal Pain HPI - General Source: patient Mode of arrival: ambulatory Limitations: no limitations <Scooby Newman - Last Filed: 08/16/23 17:46> <Raphael Schmitz - Last Filed: 10/09/23 08:11> - General Chief Complaint: Abdominal Pain Stated Complaint: migraine and abd pain - History of Present Illness Initial Comments: 23-year-old female with a history of fibroids and cysts presents to ED with chief complaint of headache. Patient states 2 days ago onset of headaches. Patient states that she typically does get headaches however states that this headache is atypical for her. Today states headache is still ongoing. Patient states that she took 2 Tylenol, naproxen, and Ibuprofen prior to arrival today and reports still no improvement of headache. Also notes associated blurred vision which is not typical of her usual headaches. Also patient states for the past week has had pelvic pain that is constant nature . States that she is also having brown vaginal discharge. Denies vaginal bleeding. (Scooby Newman) - Related Data Home Medications Medication Instructions Recorded Confirmed Vit No.179/Iron/Folic 1 tab PO DAILY 12/12/22 01/29/23 [ Tablet] Previous Rx's Medication Instructions Recorded Ibuprofen [Motrin] 600 mg PO Q6H #60 tab 02/01/23 oxyCODONE HCL [OxyIR] 5 mg PO Q4HR PRN #5 tab 02/01/23 Allergies Allergy/AdvReac Type Severity Reaction Status Date / Time clindamycin Allergy Rash/Hives Verified 08/16/23 17:23 Review of Systems ROS Other: All systems not noted in ROS Statement are negative. <Scooby Newman - Last Filed: 08/16/23 17:46> ROS Other: All systems not noted in ROS Statement are negative. <Raphael Schmitz - Last Filed: 10/09/23 08:11> ROS Statement: Those systems with pertinent positive or pertinent negative responses have been documented in the HPI. Past Medical History Past Medical History: No Reported History, GERD/Reflux Additional Past Medical History / Comment(s): UTIs, anemic, PCOS History of Any Multi-Drug Resistant Organisms: None Reported Past Surgical History: No Surgical Hx Reported, Section Additional Past Surgical History / Comment(s): D & C after miscarriage in 2018 and October 2021, wisdom teeth removal 2017 Past Anesthesia/Blood Transfusion Reactions: No Reported Reaction Past Psychological History: ADD/ADHD, Anxiety, Depression Smoking Status: Never smoker Past Alcohol Use History: None Reported Past Drug Use History: None Reported - Past Family History Brother(s) Family Medical History: No Reported History <JohnSilvia xiaoScooby - Last Filed: 08/16/23 17:46> General Exam Limitations: no limitations General appearance: alert, in no apparent distress Eye exam: Present: normal appearance Neck exam: Present: normal inspection Back exam: Present: normal inspection Neurological exam: Present: alert <JohnScooby xiao - Last Filed: 08/16/23 17:46> Limitations: no limitations General appearance: alert, in no apparent distress Head exam: Present: atraumatic, normocephalic Eye exam: Present: normal appearance, PERRL, EOMI. Absent: scleral icterus, conjunctival injection ENT exam: Present: normal oropharynx Neck exam: Present: normal inspection, full ROM. Absent: meningismus Respiratory exam: Present: normal lung sounds bilaterally. Absent: respiratory distress, wheezes, rales, rhonchi, stridor Cardiovascular Exam: Present: regular rate, normal rhythm, normal heart sounds. Absent: systolic murmur, diastolic murmur, rubs, gallop Extremities exam: Present: normal inspection Back exam: Present: normal inspection Neurological exam: Present: alert, oriented X3, CN II-XII intact. Absent: motor sensory deficit Skin exam: Present: warm, dry, intact, normal color. Absent: rash <Raphael Schmitz - Last Filed: 10/09/23 08:11> Course Vital Signs 08/16/23 08/16/23 08/17/23 17:20 23:21 00:00 Temperature 98.0 F Pulse Rate 98 81 67 Respiratory 18 18 18 Rate Blood Pressure 91/55 100/60 91/57 O2 Sat by Pulse 98 99 100 Oximetry 08/17/23 08/17/23 01:45 02:51 Temperature Pulse Rate 75 74 Respiratory 18 18 Rate Blood Pressure 90/53 99/60 O2 Sat by Pulse 100 100 Oximetry Medical Decision Making <Scooby Newman - Last Filed: 08/16/23 17:46> - Lab Data Result diagrams: 08/16/23 19:08 08/16/23 19:08 <Raphael Schmitz - Last Filed: 10/09/23 08:11> - Medical Decision Making Quicknote portion performed. Signed Scooby Newman PA-C (Scooby Newman) The patient had computed tomography scan of the brain ordered by physician day care assistant as the patient was having change from the usual chronic headaches that she gets. I interpreted this as negative for acute intracranial bleed or traum a. The patient did have some abdominal tenderness and therefore computed tomography scan obtained which I interpreted as being negative for free air, obstruction, or acute surgical condition Was pt. sent in by a medical professional or institution (, PA, CAGE SHIFT MANAGER, urgent care, hospital, or detention...) When possible be specific @ -[No] Did you speak to anyone other than the patient for history (EMS, parent, family, police, friend...)? What history was obtained from this source @ -[No] Did you review nursing and triage notes (agree or disagree)? Why? @ -[I reviewed and agree with nursing and triage notes] Were old charts reviewed (outside hosp., previous admission, EMS record, old EKG, old radiological studies, urgent care reports/EKG's, detention records)? Report findings @ -[No old charts were reviewed] Differential Diagnosis (chest pain, altered mental status, abdominal pain women, abdominal pain men, vaginal bleeding, weakness, fever, dyspnea, syncope, headache, dizziness, GI bleed, back pain, seizure, CVA, palpatations, mental health, musculoskeletal)? @ -[Differential Headache: Migraine, tension, cluster, carbon monoxide, central venous thrombosis, pension karma temporal arteritis, acute closure glaucoma, intercranial hemorrhage, mastoiditis, sinusitis, head injury, this is not meant to be an all-inclusive list. Differential Abdominal Pain Women: Appendicitis, Cholecystitis, diverticulosis, ischemic bowel, pancreatitis, hepatitis, UTI, gastroenteritis, AAA, incarcerated hernia, bowel obstruction, constipation, inflammatory bowel, hepatitis, peptic ulcer disease, splenic infarction, perforated viscus, vulvitis, ovarian torsion, PID, kidney stone, placenta abruption, this is not meant to be an all-inclusive list EKG interpreted by me (3pts min.). @ -[As above] X-rays interpreted by me (1pt min.). @ -[None done] CT interpreted by me (1pt min.). @ -[I interpreted as above U/S interpreted by me (1pt. min.). @ -[None done] What testing was considered but not performed or refused? (CT, X-rays, U/S, labs)? Why? @ -[None] What meds were considered but not given or refused? Why? @ -[None] Did you discuss the management of the patient with other professionals (professionals i.e. , PA, CAGE SHIFT MANAGER, lab, RT, psych nurse, social services aide, primary therapist, teacher, training systems officer, rn case manager hospice)? Give summary @ -[No] Was smoking cessation discussed for >3mins.? @ -[No] Was critical care preformed (if so, how long)? @ -[No] Were there social determinants of health that impacted care today? How? (Homelessness, low income, unemployed, alcoholism, drug addiction, transportation, low edu. Level, literacy, decrease access to med. care, residential, rehab)? @ -[No] Was there de-escalation of care discussed even if they declined (Discuss DNR or withdrawal of care, Hospice)? DNR status @ -[No] What co-morbidities impacted this encounter? (DM, HTN, Smoking, COPD, CAD, Cancer, CVA, ARF, Chemo, Hep., AIDS, mental health diagnosis, sleep apnea, morbid obesity)? @ -[None] Was patient admitted / discharged? Hospital course, mention meds given and route, prescriptions, significant lab abnormalities, going to OR and other pertinent info. @ -[The patient is 23-year-old woman who presents with headache and also with low abdominal pain. I patient workup here not revealing acute surgical condition and the abdomen. The patient had improvement with medication and wanted to go home. Undiagnosed new problem with uncertain prognosis? @ -[No] Drug Therapy requiring intensive monitoring for toxicity (Heparin, Nitro, Insulin, Cardizem)? @ -[No] Were any procedures done? @ -[No] Diagnosis/symptom? @ -[Acute headache Acute abdominal pain Acute, or Chronic, or Acute on Chronic? @ -[default] Uncomplicated (without systemic symptoms) or Complicated (systemic symptoms)? @ -[Uncomplicated Side effects of treatment? @ -[No] Exacerbation, Progression, or Severe Exacerbation? @ -[No] Poses a threat to life or bodily function? How? (Chest pain, USA, PR, pneumonia, PE, COPD, DKA, ARF, appy, cholecystitis, CVA, Diverticulitis, Homicidal, Suicidal, threat to staff... and all critical care pts) @ -[No] (GabebaileeRaphael) - Lab Data Lab Results 08/16/23 08/16/23 08/16/23 Range/Units 19:08 19:08 19:08 WBC 12.5 H (3.8-10.6) k/uL RBC 4.58 (3.80-5.40) m/uL Hgb 11.8 (11.4-16.0) gm/dL Hct 35.7 (34.0-46.0) % MCV 77.9 L (80.0-100.0) fL MCH 25.7 (25.0-35.0) pg MCHC 32.9 (31.0-37.0) g/dL RDW 15.3 (11.5-15.5) % Plt Count 447 (150-450) k/uL MPV 7.8 Neutrophils % 83 % Lymphocytes % 10 % Monocytes % 3 % Eosinophils % 3 % Basophils % 0 % Neutrophils # 10.4 H (1.3-7.7) k/uL Lymphocytes # 1.3 (1.0-4.8) k/uL Monocytes # 0.3 (0-1.0) k/uL Eosinophils # 0.4 (0-0.7) k/uL Basophils # 0.0 (0-0.2) k/uL Microcytosis Slight Sodium (137-145) mmol/L Potassium (3.5-5.1) mmol/L Chloride (98-107) mmol/L Carbon Dioxide (22-30) mmol/L Anion Gap mmol/L BUN (7-17) mg/dL Creatinine (0.52-1.04) mg/dL Est GFR (CKD-EPI)AfAm (>60 ml/min/1.73 sqM) Est GFR (CKD-EPI)NonAf (>60 ml/min/1.73 sqM) Glucose (74-99) mg/dL Calcium (8.4-10.2) mg/dL Total Bilirubin (0.2-1.3) mg/dL AST (14-36) U/L ALT (4-34) U/L Alkaline Phosphatase (38-126) U/L C-Reactive Protein (<1.0) mg/dL Total Protein (6.3-8.2) g/dL Albumin (3.5-5.0) g/dL Urine Color Yellow Urine Appearance Cloudy H (Clear) Urine pH 7.5 (5.0-8.0) Ur Specific [place] 1.028 (1.001-1.035) Urine Protein Trace H (Negative) Urine Glucose (UA) Negative (Negative) Urine Ketones Negative (Negative) Urine Blood Negative (Negative) Urine Nitrite Negative (Negative) Urine Bilirubin Negative (Negative) Urine Urobilinogen <2.0 (<2.0) mg/dL Ur Leukocyte Esterase Moderate H (Negative) Urine RBC 1 (0-5) /hpf Urine WBC 8 H (0-5) /hpf Ur Squamous Epith Cells 15 H (0-4) /hpf Urine Bacteria Occasional H (None) /hpf Urine Mucus Occasional H (None) /hpf Urine HCG, Qual Not Detected (Not Detectd) 08/16/23 08/16/23 Range/Units 19:08 19:19 WBC (3.8-10.6) k/uL RBC (3.80-5.40) m/uL Hgb (11.4-16.0) gm/dL Hct (34.0-46.0) % MCV (80.0-100.0) fL MCH (25.0-35.0) pg MCHC (31.0-37.0) g/dL RDW (11.5-15.5) % Plt Count (150-450) k/uL MPV Neutrophils % % Lymphocytes % % Monocytes % % Eosinophils % % Basophils % % Neutrophils # (1.3-7.7) k/uL Lymphocytes # (1.0-4.8) k/uL Monocytes # (0-1.0) k/uL Eosinophils # (0-0.7) k/uL Basophils # (0-0.2) k/uL Microcytosis Sodium 139 (137-145) mmol/L Potassium 4.1 (3.5-5.1) mmol/L Chloride 105 (98-107) mmol/L Carbon Dioxide 23 (22-30) mmol/L Anion Gap 11 mmol/L BUN 15 (7-17) mg/dL Creatinine 0.75 (0.52-1.04) mg/dL Est GFR (CKD-EPI)AfAm >90 (>60 ml/min/1.73 sqM) Est GFR (CKD-EPI)NonAf >90 (>60 ml/min/1.73 sqM) Glucose 82 (74-99) mg/dL Calcium 9.4 (8.4-10.2) mg/dL Total Bilirubin 1.2 (0.2-1.3) mg/dL AST 22 (14-36) U/L ALT 16 (4-34) U/L Alkaline Phosphatase 63 (38-126) U/L C-Reactive Protein <0.5 (<1.0) mg/dL Total Protein 8.3 H (6.3-8.2) g/dL Albumin 4.9 (3.5-5.0) g/dL Urine Color Urine Appearance (Clear) Urine pH (5.0-8.0) Ur Specific [place] (1.001-1.035) Urine Protein (Negative) Urine Glucose (UA) (Negative) Urine Ketones (Negative) Urine Blood (Negative) Urine Nitrite (Negative) Urine Bilirubin (Negative) Urine Urobilinogen (<2.0) mg/dL Ur Leukocyte Esterase (Negative) Urine RBC (0-5) /hpf Urine WBC (0-5) /hpf Ur Squamous Epith Cells (0-4) /hpf Urine Bacteria (None) /hpf Urine Mucus (None) /hpf Urine HCG, Qual (Not Detectd) Disposition <Scooby Newman - Last Filed: 08/16/23 17:46> Is patient prescribed a controlled substance at d/c from ED?: No <Raphael Schmitz - Last Filed: 10/09/23 08:11> Clinical Impression: Headache, Abdominal pain Disposition: HOME SELF-CARE Condition: Good Referrals: None,Stated [Primary Care Provider] - 1-2 days
[2023-08-16] MEDS ORDERED: SODIUM CHLORIDE 0.9% 1,000 ML IV ONE (19:19)
[2023-08-16] MEDS ORDERED: KETOROLAC 15 MG/ML 1 ML VIAL IVP STA (19:20)
[2023-08-16] MEDS ORDERED: METOCLOPRAMIDE 5 MG/ML 2 ML VIAL IVP STA (19:20)
[2023-08-16] MEDS ORDERED: diphenhydrAMINE 50 MG/ML 1 ML VIAL IVP STA (19:20)
[2023-08-16 19:23] LABS: Basophils % (A) 0 %; Eosinophils # (A) 0.4 k/uL (0-0.7); Eosinophils % (A) 3 %; HCT 35.7 % (34.0-46.0); HGB 11.8 gm/dL (11.4-16.0); Lymphocytes # (A) 1.3 k/uL (1.0-4.8); Lymphocytes % (A) 10 %; MCH 25.7 pg (25.0-35.0); MCHC 32.9 g/dL (31.0-37.0); MCV 77.9 fL (80.0-100.0); Mean Platelet Volume 7.8; Microcytosis Slight; Monocytes # (A) 0.3 k/uL (0-1.0); Monocytes % (A) 3 %; Neutrophils # (A) 10.4 k/uL (1.3-7.7); Neutrophils % (A) 83 %; Platelet Count 447 k/uL (150-450); RBC 4.58 m/uL (3.80-5.40); RDW 15.3 % (11.5-15.5); WBC 12.5 k/uL (3.8-10.6)
[2023-08-16 19:29] LABS: ALT 16 U/L (4-34); AST 22 U/L (14-36); African American GFR (CKD) >90 (>60 ml/min/1.73 sqM); Albumin 4.9 g/dL (3.5-5.0); Alkaline Phosphatase 63 U/L (38-126); Anion Gap 11 mmol/L; Blood Urea Nitrogen 15 mg/dL (7-17); Calcium 9.4 mg/dL (8.4-10.2); Carbon Dioxide 23 mmol/L (22-30); Chloride 105 mmol/L (98-107); Glucose 82 mg/dL (74-99); Non-African American GFR(CKD) >90 (>60 ml/min/1.73 sqM); Potassium 4.1 mmol/L (3.5-5.1); Sodium 139 mmol/L (137-145); Total Bilirubin 1.2 mg/dL (0.2-1.3); Total Protein 8.3 g/dL (6.3-8.2)
[2023-08-16 19:32] LABS: Appearance,Urine Cloudy (Clear); Bacteria,Urine Occasional /hpf; Bilirubin,Urine Negative (Negative); Blood,Urine Negative (Negative); Color,Urine Yellow; Glucose,Urine (UA) Negative (Negative); Ketones,Urine Negative (Negative); Leukocyte Esterase,Urine Moderate (Negative); Mucus,Urine Occasional /hpf; Nitrite,Urine Negative (Negative); PH, Urine 7.5 (5.0-8.0); Protein,Urine Trace (Negative); RBC,Urine 1 /hpf (0-5); Specific Gravity,Urine 1.028 (1.001-1.035); Squamous Epithelial Cell,Urine 15 /hpf (0-4); Urobilinogen,Urine <2.0 mg/dL (<2.0); WBC,Urine 8 /hpf (0-5)
--- NOTE | 2023-08-16 21:07 | CT ---
EXAMINATION TYPE: CT brain wo con CT DLP: 1100.4 mGycm, Automated exposure control for dose reduction was used. DATE OF EXAM: 08/16/2023 9:00 PM COMPARISON: None. CLINICAL INDICATION:Female, 23 years old with history of Atypical [place], intractable pain, headache TECHNIQUE: Brain: Axial CT images of the brain were obtained with coronal and sagittal reformats created and rev iewed. Contrast used: None. Oral contrast used: None. FINDINGS: Brain: Extra-axial spaces: No abnormal extra-axial fluid collections. Ventricular system: Within normal limits Cerebral parenchyma: No acute intraparenchymal hemorrhage or mass effect. The mahoney-white junction is well differentiated. Cerebellum: Unremarkable. Mass effect: No evidence of midline shift. Intracranial vasculature: unremarkable Soft tissues: Normal. Calvarium/osseous structures: No depressed skull fracture. Paranasal sinuses and mastoid air cells: Mild scattered paranasal sinus disease. Visualized orbits: Orbital contents are intact. IMPRESSION: No acute intracranial process.
[2023-08-16] MEDS ORDERED: MORPHINE SULFATE 4 MG/ML SYRINGE IV STA (21:42)
[2023-08-17] MEDS ORDERED: HYDROmorphone 0.5 MG/0.5 ML SYRINGE IVP STA (00:31)
--- NOTE | 2023-08-17 01:22 | CT ---
EXAM: CT Abdomen and Pelvis Without Intravenous Contrast CLINICAL HISTORY: ITS.REASON CT Reason: RLQ pain TECHNIQUE: Axial computed tomography images of the abdomen and pelvis without intravenous contrast. CTDI is 6.4 mGy and DLP is 338.6 mGy-cm. This CT exam was performed using one or more of the following dose reduction techniques: automated exposure control, adjustment of the mA and/or kV according to patient size, and/or use of iterative reconstruction technique. COMPARISON: No relevant prior studies available. FINDINGS: ABDOMEN: Liver: Unremarkable. Gallbladder and bile ducts: Unremarkable. Pancreas: Unremarkable. Spleen: Unremarkable. Adrenals: Unremarkable. Kidneys and ureters: Unremarkable. No obstructing stones. No hydronephrosis. Stomach and bowel: Moderate colonic stool burden. No inflammatory changes along the GI tract. PELVIS: Appendix: Normal appendix. Bladder: Unremarkable. Reproductive: Unremarkable as visualized. ABDOMEN and PELVIS: Intraperitoneal space: Trace physiologic free fluid within the pelvis. No free air. Bones/joints: No acute fracture. Soft tissues: Unremarkable. Vasculature: Unremarkable. Lymph nodes: Unremarkable. IMPRESSION: 1. Normal appendix. 2. Moderate colonic stool burden. Correlate for constipation.
[2023-08-17] MEDS ORDERED: SODIUM CHLORIDE 0.9% 1,000 ML IV STA (01:41)
[2023-08-17 02:55] VITALS: BP 99/60; PULSE 74
== END 2023-08-17 02:57 | disposition home or self-care (01) ==
LOC: EC 15:56
DX: R10.9 Unspecified abdominal pain (principal); R51.9 Headache, unspecified; Z88.8 Allergy status to other drugs, medicaments and biological substances; Z86.59 Personal history of other mental and behavioral disorders
CPT/HCPCS: 36415; 80053; 85025; 86140; 81001; 81025; 70450; 74176; 99284; 96374; 96375 ×3; 96361 ×5; J2270; J1200; J2765; J1885

== ENCOUNTER → 2023-10-15 | Outpatient (CLI) | payer OTHER ==
[2023-10-15 11:56] LABS: Appearance,Urine Cloudy (Clear); Bacteria,Urine Rare /hpf; Bilirubin,Urine Negative (Negative); Blood,Urine Negative (Negative); Color,Urine Colorless; Glucose,Urine (UA) Negative (Negative); Ketones,Urine Negative (Negative); Leukocyte Esterase,Urine Negative (Negative); Mucus,Urine Rare /hpf; Nitrite,Urine Negative (Negative); Protein,Urine Negative (Negative); Specific Gravity,Urine 1.012 (1.001-1.035); Squamous Epithelial Cell,Urine 4 /hpf (0-4); Urobilinogen,Urine <2.0 mg/dL (<2.0); WBC,Urine 3 /hpf (0-5)
[2023-10-15 15:32] LABS: Basophils # (A) 0.07 X 10*3/uL (0.00-0.10); Basophils % (A) 1.2 %; Eosinophils # (A) 0.22 X 10*3/uL (0.04-0.35); Eosinophils % (A) 3.9 %; HCT 36.6 % (37.2-46.3); HGB 11.4 g/dL (12.0-15.0); Lymphocytes # (A) 1.75 X 10*3/uL (0.90-5.00); MCH 24.4 pg (27.0-32.0); MCHC 31.1 g/dL (32.0-37.0); MCV 78.2 FL (80.0-97.0); Mean Platelet Volume 10.2 FL (9.5-12.2); Monocytes # (A) 0.31 X 10*3/uL (0.20-1.00); Monocytes % (A) 5.5 %; NRBC Per 100 WBC 0 X 10*3/uL (0.00-0.01); Neutrophils # (A) 3.29 X 10*3/uL (1.80-7.70); Neutrophils % (A) 58.2 %; Platelet Count 407 X 10*3/uL (140-440); RBC 4.68 X 10*6/uL (4.10-5.20); RDW 14.4 % (11.5-14.5); WBC 5.65 X 10*3/uL (4.50-10.00)
[2023-10-15 15:52] LABS: BUN/Creat Ratio 16.38 Ratio (12.00-20.00); Blood Urea Nitrogen 13.1 mg/dL (9.0-27.0); Calcium 9.7 mg/dL (8.7-10.3); Carbon Dioxide 23.5 mmol/L (21.6-31.8); Chloride 105 mmol/L (96-109); Glucose 110 mg/dL (70-110); Potassium 4.1 mmol/L (3.5-5.5); Sodium 140 mmol/L (135-145)
== END | disposition home or self-care (01) ==
LOC: LABPAT 10:48
PROVIDERS: ATTEND Obstetrics & Gynecology
DX: Z01.812 Encounter for preprocedural laboratory examination (principal)
CPT/HCPCS: 80048; 81001; 85025; 86850; 86900; 86901

== ENCOUNTER 2023-10-22 05:33 | Inpatient (IN) | payer OTHER ==
--- NOTE | 2023-10-21 18:02 | P.HPOB ---
History of Present Illness H&P Date: 10/21/23 Chief Complaint: Menorrhagia, pelvic pain, dysmenorrhea, dysparuenia This is a 23 y.o. female, 5, para 3, who presents for total laparoscopic hysterectomy with bilateral salpingectomy with daVinci and diagnostic cystoscopy, possible total abdominal hysterectomy with bilateral salpingooophorectomy due to menorrhagia with regular cycle, pelvic pain, dysmenorrhea, and dyspareunia. She complains of menses lasting up to 2 weeks long for the last 6 months associated with severe pain that causes vomiting and migraines. She also complains of sharp, stabbing, lower abdominal pelvic pain and dyspareunia every time. She is unable to take hormonal control becaus e it affects her mood. She has completed childbearing and has had a tubal ligation. Pelvic ultrasound showed uterus measuring 8.3 x 6.5 x 4.6 cm with heterogeneous echotexture, right ovary with 2.3 cm complex cyst and some free fluid. OB Hx: . History of 2 vaginal deliveries, 1 complicated by shoulder dystocia and 1 section. History of 2 miscarriages. 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 History of chlamydia treated in the past. Social Hx: Single. Unemployed. Review of Systems Constitutional: Denies chills, Denies fever Eyes: denies blurred vision, denies pain Ears, nose, mouth and throat: Reports headache, Denies sore throat Cardiovascular: Denies chest pain, Denies shortness of breath Respiratory: Denies cough Gastrointestinal: Reports abdominal pain, Reports nausea, Reports vomiting Genitourinary: Reports dysmenorrhea, Reports dyspareunia, Reports pelvic pain Menstruation: Reports menses 8 or > days, Reports period heavy Musculoskeletal: Reports low back pain, Reports myalgias Integumentary: Denies pruritus, Denies rash Neurological: Reports migraines, Reports vertigo Psychiatric: Denies anxiety, Denies depression Endocrine: Denies fatigue, Denies weight change Past Medical History Past Medical History: GERD/Reflux Additional Past Medical History / Comment(s): UTIs, anemic, PCOS History of Any Multi-Drug Resistant Organisms: None Reported Past Surgical History: Section, Tubal Ligation Additional Past Surgical History / Comment(s): D & C after miscarriage in 2018 and October 2021, wisdom teeth removal 2017 Past Anesthesia/Blood Transfusion Reactions: No Reported Reaction Past Psychological History: No Psychological Hx Reported Smoking Status: Former smoker Past Alcohol Use History: None Reported Past Drug Use History: None Reported - Past Family History Brother(s) Family Medical History: No Reported History Mother Family Medical History: Cancer Additional Family Medical History / Comment(s): uterine and cervical Medications and Allergies Home Medications Medication Instructions Recorded Confirmed Type Vit No.179/Iron/Folic 1 tab PO DAILY 12/12/22 10/22/23 History [ Tablet] Allergies Allergy/AdvReac Type Severity Reaction Status Date / Time clindamycin Allergy Rash/Hives Verified 10/22/23 05:58 Exam Osteopathic Statement: *. No significant issues noted on an osteopathic structural exam other than those noted in the History and Physical/Consult. Gen: thin female in no acute distress HEENT: within normal limits Heart: regular rate and rhythm Lungs: clear to auscultation bilaterally Abdomen: soft, non-tender Pelvic: uterus small, anteverted, mildly tender with 1st degree prolapse, adnexa tender bilaterally with no masses Extremities: neg. Peg's. Assessment and Plan (1) Menorrhagia with regular cycle Current Visit: No Status: Acute Code(s): N92.0 - EXCESSIVE AND FREQUENT MENSTRUATION WITH REGULAR CYCLE SNOMED Code(s): 936989573 (2) Dysmenorrhea Current Visit: No Status: Acute Code(s): N94.6 - DYSMENORRHEA, UNSPECIFIED SNOMED Code(s): 390696378 (3) Pelvic pain Current Visit: No Status: Acute Code(s): R10.2 - PELVIC AND PERINEAL PAIN SNOMED Code(s): 81977270 (4) Dyspareunia Current Visit: No Status: Acute Code(s): HMY5113 - SNOMED Code(s): 64129372 Plan: Proceed with total laparoscopic hysterectomy with bilateral salpingectomy with daVinci and diagnostic cystoscopy, possible total abdominal hysterectomy with bilateral salpingooophorectomy. I have discussed the risks, benefits, and alternative therapies for the above- mentioned procedure and for both sedation/anesthesia as well as necessary blood products administration, if indicated, as they pertain to this patient. The patient has indicated her understanding and acceptance of the risks and procedures discussed.
[~2023-10-22 05:33] MED LIST: DEXAMETHASONE SOD PHOSPHATE 4 MG/ML 1 ML VIAL IV ONE; HYDROmorphone 0.5 MG/0.5 ML SYRINGE IVP PRN; LIDOCAINE 1% (10MG/ML) FOR IV START INTRADERMA PRN; ONDANSETRON 4 MG/2 ML VIAL IVP PRN; SCOPOLAMINE 1 MG/72 HR PATCH TRANSDERM ONE; droPERidol 5 MG/2 ML VIAL IVP ONE
[2023-10-22] MEDS ORDERED: MIDAZOLAM 2 MG/2 ML VIAL IVP ONE (06:58)
[2023-10-22] MEDS: LACTATED RINGERS 1,000 ML IV SCH (07:03)
[2023-10-22] MEDS ORDERED: diphenhydrAMINE 50 MG/ML 1 ML VIAL ONE (07:12)
[2023-10-22] MEDS ORDERED: SUCCINYLCHOLINE CHLORIDE 200 MG/10 ML VIAL IV ONE (07:14)
[2023-10-22] MEDS ORDERED: PROPOFOL 10 MG/ML 20 ML VIAL IV ONE (07:14)
[2023-10-22] MEDS ORDERED: fentaNYL (PF) 50 MCG/ML 2 ML AMP ONE (07:14)
[2023-10-22] MEDS ORDERED: diphenhydrAMINE 50 MG/ML 1 ML VIAL IVP ONE ×2 (07:14→09:36)
[2023-10-22] MEDS ORDERED: ePHEDrine 50 MG/ML 1 ML VIAL ONE (07:14)
[2023-10-22] MEDS ORDERED: KETOROLAC 15 MG/ML 1 ML VIAL ONE (07:14)
[2023-10-22] MEDS ORDERED: NEOSTIGMINE 1 MG/ML 10 ML VIAL ONE (07:14)
[2023-10-22] MEDS ORDERED: ROCURONIUM 10 MG/ML (5 ML VIAL) IV ONE (07:14)
[2023-10-22] MEDS ORDERED: LIDOCAINE 1% INJ 10MG/ML (20 ML MDV) ONE (07:14)
[2023-10-22] MEDS ORDERED: GLYCOPYRROLATE 0.2 MG/ML 2 ML VIAL ONE (07:14)
[2023-10-22] MEDS ORDERED: BUPIVACAINE (PF) 0.25% 30 ML VIAL SQ ONE (08:03)
[2023-10-22] MEDS ORDERED: LACTATED RINGERS 1,000 ML IV ONE (09:08)
--- NOTE | 2023-10-22 09:37 | P.OP ---
Date of Procedure: 10/22/23 Preoperative Diagnosis: Menorrhagia with regular cycle Dysmenorrhea Pelvic pain Dyspareunia Postoperative Diagnosis: Same Procedure(s) Performed: Total laparoscopic hysterectomy with bilateral salpingectomy Diagnostic cystoscopy Anesthesia: GETA, spinal (Duramorph intrathecal) Surgeon: Aracelis Fairchild Estimated Blood Loss (ml): 300 Pathology: other (Uterus with cervix, bilateral fallopian tubes) Condition: stable Disposition: floor Indications for Procedure: This is a 23 y.o. female, 5, para 3, who presents for total laparoscopic hysterectomy with bilateral salpingectomy with daVinci and diagnostic cystoscopy, possible total abdominal hysterectomy with bilateral salp ingooophorectomy due to menorrhagia with regular cycle, pelvic pain, dysmenorrhea, and dyspareunia. She complains of menses lasting up to 2 weeks long for the last 6 months associated with severe pain that causes vomiting and migraines. She also complains of sharp, stabbing, lower abdominal pelvic pain and dyspareunia every time. She is unable to take hormonal control because it affects her mood. She has completed childbearing and has had a tubal ligation. Pelvic ultrasound showed uterus measuring 8.3 x 6.5 x 4.6 cm with heterogeneous echotexture, right ovary with 2.3 cm complex cyst and some free fluid. Operative Findings: Uterus is small with grade 1 uterine prolapse. Normal uterus tubes and ovaries are noted. Description of Procedure: The patient was taken to the operating room where she is placed in the dorsal lithotomy position on a pink pad. Her arms are tucked at her sides and cushioned. When she is correctly position, anesthesia was given. Tilt test was performed. She is prepped and draped in the normal sterile fashion. Next a weighted speculum was placed in the patient's vagina. A right angle retractor is used to visualize the cervix. The anterior lip of the cervix is grasped with a single-tooth tenaculum. Uterus is sounded to 7-1/2 cm. Cervix is gently dilated with Kirby dilators. Next the cervix is measured at 3 cm. 0 Vicryl stitches are placed at the 3 and 9:00 positions on the cervix and held. Next the HUMI manipulator is placed within the cervix, the balloon is inflated, and then the 0 Vicryl sutures are brought through the HUMI and then the cervical cup is pressed against the cervix until the click is heard. Next the bladder Bustos catheter is inserted. Gloves are changed and attention is turned to the abdomen. The uterus is anteverted and then marked on the abdomen. An incision is made above the umbilicus approximately 8 cm above the top of the uterus and then a 5 mm disposable bladeless trocar is inserted under direct visualization with low flow. Once inside high flow is turned on and intra-abdominal contents were inspected. Another incision is made on the right side approximately 8 cm lateral to the umbilicus in the midline and a 8 mm da Mike port is placed under direct visualization. The same procedure is carried out on the left side. Next an physiotherapist's assistant port is placed approximately 6 cm superior to the left da Mike port and lateral to the camera port using a 12 mm trocar under direct visualization. Next the da Mike robot is docked to the patient from her right side. The ports are attached to the arms. Smoke evacuator is also attached. The camera is inserted and then a monopolar scissors is placed through the right port and a vessel sealer was placed through the left port under direct visualization. Energy is attached to both ports. At this time I broke scrub to go to the robot console. The end of the left fallopian tube is grasped by the physiotherapist's assistant and the vessel sealer is used to cauterize and cut the mesosalpinx. The fallopian tube is then removed through the physiotherapist's assistant port. Next the round ligament on the left is grasped with the vessel sealer and cauterized and cut. The broad ligament was then opened up posteriorly with monopolar cautery. Uterine arteries are then grasped with the vessel sealer, cauterized, and cut. Monopolar scissors were then used to carefully dissect the bladder reflection and the bladder flap is created. Next attention is turned to the right side of the pelvis. The end of the right fallopian tube is grasped and the vessel sealer is used to grasp the right mesosalpinx, cauterize, and then cut. This was carried out on the remainder of the tube and then the tube is removed from the field. The round ligament was also grasped with the vessel sealer, cauterized and then cut. The posterior leaf of the broad ligament is then opened up to the uterosacral area. Uterine arteries are grasped with vessel sealer and then cauterized and cut. Next the uterus is retroverted and the balloon is inflated. Monopolar scissors are used to cut through the vaginal cuff along the HUMI cuff anteriorly. This is carried around to the left side again using monopolar and bipolar energy. The uterus is anteverted and then the posterior cuff is cut along the HUMI cuff using monopolar scissors. The remaind er of the right side of the cuff is removed with monopolar and bipolar energy. Once the uterus is freed it is removed through the vagina. Monopolar and bipolar energy are used to cauterize any small bleeders left behind more on the right side. Next the arms are switched out to the right arm with Feliciano suture cut and the left arm with a Felix grasper. An O-Stratafix suture is then used to suture from the right side of the cuff across to the left side in a running fashion after securing the suture with the small loop on the end. Once the left side of the cuff was reached, a couple more sutures were placed going towards the right side to secure the suture. Suture was then cut and removed from the field. Irrigation was carried out. There was a small bleeder noted on the right pedicle. The vessel sealer was replaced and this area was grasped with the vessel sealer and cauterized. Irrigation was again carried out. Good hemostasis was noted. Next the instruments are removed from the arms. I regowned and cystoscopy was then performed. Flow was not visualized from either ureteral orifice. A fluid bolus was given by anesthesia and still no flow was noted. Cystoscopy was then completed and Bustos catheter was replaced. Clear urine was noted. All sponge and needle counts are correct. Patient is taken to recovery room in stable condition. Urology was consulted and Dr. murphy recommends an ultrasound of her kidneys in 24 hours. This will be ordered.
[2023-10-22] MEDS ORDERED: MORPHINE SULFATE 4 MG/ML SYRINGE IVP ONE (09:57)
[2023-10-22] MEDS ORDERED: ZOLPIDEM 5 MG TAB PO PRN (11:05)
[2023-10-22] MEDS ORDERED: ONDANSETRON 4 MG/2 ML VIAL IVP PRN (11:05)
[2023-10-22] MEDS ORDERED: SIMETHICONE 80 MG CHEWABLE PO PRN (11:05)
[2023-10-22] MEDS ORDERED: diphenhydrAMINE 50 MG/ML 1 ML VIAL IVP PRN (11:05)
[2023-10-22] MEDS ORDERED: ACETAMINOPHEN IV (For NPO) 1,000 MG in EMPTY BAG 1 BAG IVPB ONE (11:30)
[2023-10-22] MEDS: METOCLOPRAMIDE 5 MG/ML 2 ML VIAL IVP PRN ×2 (13:17→23:20)
[2023-10-22] MEDS: KETOROLAC 15 MG/ML 1 ML VIAL IVP PRN ×2 (17:36→23:20)
--- NOTE | 2023-10-22 17:56 | P.PN ---
Subjective Progress Note Date: 10/22/23 Principal diagnosis: Status post total laparoscopic hysterectomy with bilateral salpingectomy with cystoscopy postoperative day #0 Patient has been complaining of nausea and vomiting since surgery. She states she always has this anytime she has any kind of anesthesia. She is sore on her incision sites but her pain medications do control it. She has not ambulated yet. Patient was advised of surgical findings and advised that no flow was visualized from either ureter during her cystoscopy. She was advised that I did speak with urology and they have recommended an ultrasound of her kidneys in the morning. If there is any concern for injury to her ureters, they will intervene at that time. Patient expressed understanding. Urine output has been clear and 20-30 mL per hour. We will give a small fluid bolus and encourage patient to try to ambulate. Once we have better output and she is ambulatory, will be able to remove her catheter. Will slowly increase diet as tolerated once nausea subsides. Objective - Vital Signs Vital signs: Vital Signs Temp 98.2 F 10/22/23 15:40 Pulse 85 10/22/23 15:40 Resp 16 10/22/23 15:40 BP 100/58 10/22/23 15:40 Pulse Ox 100 10/22/23 15:40 FiO2 Intake & Output 10/21/23 10/22/23 10/22/23 18:59 06:59 18:59 Intake Total 1850 Output Total 900 Balance 950 Weight 50 kg 50 kg Intake: IV 1850 Output: Urine 450 Emesis 150 Estimated Blood Loss 300 Assessment and Plan (1) Menorrhagia with regular cycle Current Visit: No Status: Acute Code(s): N92.0 - EXCESSIVE AND FREQUENT MENSTRUATION WITH REGULAR CYCLE SNOMED Code(s): 055631029 (2) Dysmenorrhea Current Visit: No Status: Acute Code(s): N94.6 - DYSMENORRHEA, UNSPECIFIED SNOMED Code(s): 443286728 (3) Pelvic pain Current Visit: No Status: Acute Code(s): R10.2 - PELVIC AND PERINEAL PAIN SNOMED Code(s): 73282468 (4) Dyspareunia Current Visit: No Status: Acute Code(s): [id number] - SNOMED Code(s): 60544642
[2023-10-22] MEDS: SENNOSIDES-DOCUSATE SODIUM 1 EACH TAB PO SCH ×2 (19:30→19:39)
[2023-10-23] MEDS: LACTATED RINGERS 1,000 ML IV SCH (02:03)
[2023-10-23] MEDS: ACETAMINOPHEN TAB 325 MG TAB PO PRN ×3 (02:03→14:38)
[2023-10-23] MEDS: IBUPROFEN 600 MG TAB PO PRN ×3 (05:47→18:23)
[2023-10-23] MEDS ORDERED: ACETAMINOPHEN TAB 325 MG TAB PO PRN (07:29)
[2023-10-23 07:50] LABS: Basophils % (A) 0 %; Eosinophils % (A) 1 %; Hypochromasia Slight; Lymphocytes % (A) 32 %; MCH 25.6 pg (25.0-35.0); MCV 77.6 fL (80.0-100.0); Mean Platelet Volume 8.1; Microcytosis Slight; Monocytes # (A) 0.4 k/uL (0-1.0); Monocytes % (A) 6 %; Neutrophils # (A) 3.8 k/uL (1.3-7.7); Neutrophils % (A) 60 %; Platelet Count 250 k/uL (150-450); RBC 1.81 m/uL (3.80-5.40); RDW 15.7 % (11.5-15.5); WBC 6.3 k/uL (3.8-10.6)
[2023-10-23 07:53] LABS: HGB 4.6 gm/dL (11.4-16.0)
--- NOTE | 2023-10-23 08:13 | US ---
EXAMINATION TYPE: US kidneys/renal and bladder DATE OF EXAM: 10/23/2023 COMPARISON: NONE CLINICAL INDICATION: Female, 23 years old with history of No flow from ureters on cystoscopy postsurg ical; patient unable to urinate after partial hysterectomy, does not feel urgency to void EXAM MEASUREMENTS: Right Kidney: 9. x 3.5 x 3.5 cm Left Kidney: 10.3 x 4.0 x 4.2 cm Right Kidney: No hydronephrosis or masses seen Left Kidney: No hydronephrosis or masses seen Bladder: very distended Bilateral Jets seen: bilateral free fluid seen within Nuñez's pouch IMPRESSION: 1. No suspicious hydronephrosis or hydroureter. 2. Small amount of free fluid in Morison's pouch. 3. Bilateral ureteral jets identified.
--- NOTE | 2023-10-23 08:35 | P.PN ---
Subjective Progress Note Date: 10/23/23 Principal diagnosis: Status post total laparoscopic hysterectomy with bilateral salpingectomy with cystoscopy postoperative day #1 Acute blood loss anemia, postoperative Patient is no longer having nausea and vomiting. She does feel dizzy and lightheaded with sitting up and does have a mild headache. She has not passed flatus or bowel movement yet. Her pain is moderately controlled with ibuprofen and Tylenol. She may ask for oxycodone a little later today if needed. She has been urinating after the catheter has been removed and has been urinating adequate amounts. She denies any bleeding noted. Small amount of blood the first time she got up to the bathroom but since that time she has not noticed any vaginal bleeding. Objective - Vital Signs Vital signs: Vital Signs Temp 98.2 F 10/23/23 07:55 Pulse 98 10/23/23 07:55 Resp 15 10/23/23 07:55 BP 89/50 10/23/23 07:55 Pulse Ox 98 10/23/23 07:55 FiO2 Intake & Output 10/22/23 10/23/23 10/23/23 18:59 06:59 18:59 Intake Total 1850 Output Total 935 600 450 Balance 915 -600 -450 Weight 50 kg Intake: IV 1850 Output: Urine 485 600 450 Emesis 150 Estimated Blood Loss 300 Other: Voiding Method Toilet - Constitutional General appearance: Present: no acute distress - Gastrointestinal Gastrointestinal Comment(s): Incision sites are bandaged but bandages are dry. General gastrointestinal: Present: normal bowel sounds, soft, tenderness (Mild tenderness is noted around the incision sites). Absent: distended - Genitourinary Genitourinary Comment(s): Jennifer-pad shows no bleeding - Musculoskeletal Musculoskeletal Comment(s): Negative Homans - Labs CBC & Chem 7: 10/23/23 07:30 Labs: Abnormal Lab Results - Last 24 Hours (Table) 10/23/23 10/23/23 Range/Units 07:30 07:30 RBC 1.81 L (3.80-5.40) m/uL Hgb 4.6 L* (11.4-16.0) gm/dL Hct 14.0 L* (34.0-46.0) % MCV 77.6 L (80.0-100.0) fL RDW 15.7 H (11.5-15.5) % Crossmatch See Detail Assessment and Plan Assessment: Status post total left scopic hysterectomy with bilateral salpingectomy and diagnostic cystoscopy postoperative day #1 Acute blood loss anemia (1) Menorrhagia with regular cycle Current Visit: No Status: Acute Code(s): N92.0 - EXCESSIVE AND FREQUENT MENSTRUATION WITH REGULAR CYCLE SNOMED Code(s): 129772232 (2) Dysmenorrhea Current Visit: No Status: Acute Code(s): N94.6 - DYSMENORRHEA, UNSPECIFIED SNOMED Code(s): 691382391 (3) Pelvic pain Current Visit: No Status: Acute Code(s): R10.2 - PELVIC AND PERINEAL PAIN SNOMED Code(s): 33251837 (4) Dyspareunia Current Visit: No Status: Acute Code(s): [id number] - SNOMED Code(s): 48580365 Plan: Ultrasound this morning shows normal kidneys with no hydronephrosis and bilateral ureteral jets identified. There is also small amount of free fluid in Morison's pouch. Patient has been getting adequate urine output this morning and therefore concern for any ureteral damage is low. Patient however is symptomatic with her blood loss anemia with a hemoglobin of 4.6. She was counse led regarding the need for blood transfusion and is willing to proceed. We'll transfuse 2 units of packed red blood cells today. We'll hold discharge until at least tomorrow to confirm stability of her hemoglobin. Will advance diet as tolerated and work on pain control today.
[2023-10-23] MEDS ORDERED: FAMOTIDINE 20 MG TAB PO ONE (09:00)
[2023-10-23] MEDS: SENNOSIDES-DOCUSATE SODIUM 1 EACH TAB PO SCH ×2 (09:45→20:07)
--- NOTE | 2023-10-23 11:39 | P.PN ---
Progress Note - Text 10/23/23 630am 23-year-old female status post vaginal hysterectomy patient received a spinal Duramorph for postop pain control, patient has a VAS of 7 complains of nausea vomiting and pruritus. She feels better with regards nausea vomiting but still has some itching, which showed subside.
--- NOTE | 2023-10-23 12:28 | P.ANPRN ---
Procedure Note - Anesthesia - Epidural/Spinal Spinal Time Out Performed: Yes Date of Procedure: 10/22/23 Procedure Start Time: 06:57 Procedure Stop Time: 06:59 Location of Patient: PreOp Indication: Acute Post-Operative Pain Sedation Type: Sedate with meaningful contact maintained Preparation: Sterile Prep Position: Sitting Needle Guage: 25 Blood Aspirated: No Pain Paresthesia on Injection Noted: No Events: Uneventful and Well Tolerated (Duramorph 300 mics plus fentanyl 25 mics injected into the intrathecal space)
[2023-10-24] MEDS: IBUPROFEN 600 MG TAB PO PRN ×2 (03:22→10:33)
[2023-10-24 03:48] VITALS: RESP 16
[2023-10-24] MEDS: ACETAMINOPHEN TAB 325 MG TAB PO PRN ×2 (04:41→12:06)
[2023-10-24] MEDS: LACTATED RINGERS 1,000 ML IV SCH (06:39)
[2023-10-24 07:53] LABS: Basophils % (A) 0 %; Eosinophils # (A) 0.1 k/uL (0-0.7); Eosinophils % (A) 2 %; Hypochromasia Slight; Lymphocytes # (A) 1.5 k/uL (1.0-4.8); Lymphocytes % (A) 22 %; MCH 27.6 pg (25.0-35.0); MCHC 34.4 g/dL (31.0-37.0); MCV 80.3 fL (80.0-100.0); Mean Platelet Volume 7.6; Monocytes # (A) 0.4 k/uL (0-1.0); Monocytes % (A) 6 %; Neutrophils # (A) 4.8 k/uL (1.3-7.7); Neutrophils % (A) 69 %; Platelet Count 249 k/uL (150-450); RBC 2.87 m/uL (3.80-5.40); RDW 15.7 % (11.5-15.5); WBC 6.9 k/uL (3.8-10.6)
[2023-10-24 07:55] LABS: HGB 7.9 gm/dL (11.4-16.0)
[2023-10-24] MEDS: METOCLOPRAMIDE 5 MG/ML 2 ML VIAL IVP PRN (08:58)
[2023-10-24] MEDS: SENNOSIDES-DOCUSATE SODIUM 1 EACH TAB PO SCH (08:58)
[2023-10-24 10:36] VITALS: BP 112/71; PULSE 84; TEMP 98.9
--- NOTE | 2023-10-24 13:08 | P.DS ---
Providers Date of admission: 10/24/23 07:54 Expected date of discharge: 10/24/23 Attending physician: Aracelis Fairchild Primary care physician: Stated None - Discharge Diagnosis(es) (1) Menorrhagia with regular cycle Current Visit: No Status: Acute (2) Dysmenorrhea Current Visit: No Status: Acute (3) Pelvic pain Current Visit: No Status: Acute (4) Dyspareunia Current Visit: No Status: Acute (5) Acute blood loss anemia Current Visit: Yes Status: Acute Hospital Course: This is a 23-year-old female who underwent a total upper scopic hysterectomy with bilateral salpingectomy and diagnostic cystoscopy on 10/22/2023. Postoperatively her hemoglobin dropped to 4.6 and she was symptomatic. She was given 2 units of packed red blood cells and is feeling better today. Her hemoglobin has increased to 7.9. She also had significant postoperative nausea and vomiting. This has also resolved. Her pain is fairly well controlled with ibuprofen and Tylenol. She only used oxycodone once last night. Also neither ureteral jet was showing flow post operatively and therefore postop ultrasound 24 hours after surgery was performed. This did show normal-appearing kidneys and ureteral jets were visualized. Patient has been urinating adequate amounts. She is passing flatus but no bowel movement yet. She has no vaginal bleeding. Vital signs are currently stable. Abdomen is soft with positive bowel sounds 4. Incisions are clean dry and intact with Steri-Strips in place. Impression is status post total laparoscopic hysterectomy with bilateral salpingectomy and diagnostic cystoscopy postoperative day #2. Plan is to discharge home today. Routine postoperative instructions are given. She is advised to follow up in the office in approximately 1 week for a postoperative check. She will be given a prescription for ibuprofen and a few oxycodone. She is counseled regarding opioid use. She is advised to call the office if she has any further questions or concerns prior to her appointment time. Procedures: Total laparoscopic hysterectomy with bilateral salpingectomy and diagnostic cystoscopy on 10/22/2023 Patient Condition at Discharge: Stable Plan - Discharge Summary Discharge Rx Participant: No New Discharge Prescriptions: New RX: oxyCODONE HCL [OxyIR] 5 mg PO Q6HR PRN #10 tab PRN Reason: Moderate To Severe Pain (4-10) RX: Ibuprofen [Motrin] 600 mg PO Q6HR PRN #60 tab PRN Reason: Mild Discomfort Continue RX: Vit No.179/Iron/Folic [ Tablet] 1 tab PO DAILY Discharge Medication List RX: Vit No.179/Iron/Folic [ Tablet] 1 tab PO DAILY 12/12/22 [History] RX: Ibuprofen [Motrin] 600 mg PO Q6HR PRN #60 tab 10/24/23 [Rx] RX: oxyCODONE HCL [OxyIR] 5 mg PO Q6HR PRN #10 tab 10/24/23 [Rx] Follow up Appointment(s)/Referral(s): Aracelis Fairchild DO [Doctor of Osteopathic Medicine] - 1 Week Activity/Diet/Wound Care/Special Instructions: Activity as tolerated. No heavy lifting. No intercourse for at least 6 weeks. May shower, but no tub baths for 1-2 weeks. Diet as tolerated. Discharge Disposition: HOME SELF-CARE
== END 2023-10-24 14:13 | disposition home or self-care (01) | DRG 513 ==
LOC: OR 05:33 → 4FBP 09:29 → OR 09:29 → OBSVTOIN 09:30 → 4FBP 09:38 → INTOOBSV 10-24 07:54 → OBSVTOIN 10-24 07:54 → UNDODISIN 10-24 14:13
PROVIDERS: ADMIT Obstetrics & Gynecology; ATTEND Obstetrics & Gynecology
PROC: 0TJB8ZZ Inspection of Bladder, Via Natural or Artificial Opening Endoscopic (ICD-10-PCS; 2023-10-22)
PROC: 0UT94ZZ Resection of Uterus, Percutaneous Endoscopic Approach (ICD-10-PCS; principal; 2023-10-22 07:15)
PROC: 0UT74ZZ Resection of Bilateral Fallopian Tubes, Percutaneous Endoscopic Approach (ICD-10-PCS; 2023-10-22 07:15)
PROC: 30233N1 Transfusion of Nonautologous Red Blood Cells into Peripheral Vein, Percutaneous Approach (ICD-10-PCS; 2023-10-23)
DX: N81.4 Uterovaginal prolapse, unspecified (principal); N92.0 Excessive and frequent menstruation with regular cycle; N94.6 Dysmenorrhea, unspecified; N94.10 Unspecified dyspareunia; D62 Acute posthemorrhagic anemia; L29.9 Pruritus, unspecified; Z98.51 Tubal ligation status; Z87.891 Personal history of nicotine dependence
CPT/HCPCS: 76770; 81025; 85025; 86850; 86880; 86900; 86901; 86920; 88307